=== PATIENT | male | born 1940 | race Caucasian/White ===

== ENCOUNTER 2017-08-20 09:00 | Outpatient (CLI) | payer OTHER ==
[~2017-08-20 09:00] MED LIST: ADVAIR 2501 DISK W/1 IH; PREDNISONE10 MG PO; TUSSI-PRES LIQ118 ML PO; ZITHROMAX500 MG PO
== END 2017-08-20 13:42 | disposition home or self-care (01) ==
LOC: TOM 09:00
DX: C18.2 Malignant neoplasm of ascending colon (principal)

== ENCOUNTER 2017-09-07 07:20 | Outpatient (CLI) | payer OTHER | END 2017-09-07 15:35 | disposition home or self-care (01) | LOC: TOM 07:20 | DX: D02.20 Carcinoma in situ of unspecified bronchus and lung (principal); D02.21 Carcinoma in situ of right bronchus and lung ==

== ENCOUNTER 2017-09-27 07:50 | Outpatient (CLI) | payer OTHER | END 2017-09-27 08:00 | disposition home or self-care (01) | LOC: LAB 07:50 | DX: C25.3 Malignant neoplasm of pancreatic duct (principal); E11.65 Type 2 diabetes mellitus with hyperglycemia ==

== ENCOUNTER 2017-11-22 10:07 | Emergency (ER) | payer OTHER ==
[~2017-11-22] VITALS: Ht 172.7 cm; Wt 85.3 kg
[2017-11-22] MEDS ORDERED: PRINIVIL5 MG PO (10:30)
[2017-11-22] MEDS ORDERED: KETO10TA2 PO (14:21)
[2017-11-22] MEDS ORDERED: DIAZEPAM10 MG PO (14:21)
== END 2017-11-22 14:52 | disposition home or self-care (01) ==
LOC: ER 10:07
DX: M54.5 Low back pain (principal)

== ENCOUNTER 2018-05-12 06:43 | Emergency (ER) | payer OTHER ==
[~2018-05-12] VITALS: Ht 172.7 cm; Wt 81.6 kg
[~2018-05-12 06:43] MED LIST changes: +DIAZEPAM10 MG PO; +KETO10TA2 PO; +PRINIVIL5 MG PO
== END 2018-05-12 09:03 | disposition designated cancer center or children's hospital (05) ==
LOC: ER 06:43 → CPU-OBS 06:45 → ER 09:03
DX: I21.29 ST elevation (STEMI) myocardial infarction involving other sites (principal)

== ENCOUNTER 2018-08-14 07:41 | Outpatient (CLI) | payer OTHER | END 2018-08-14 07:48 | disposition home or self-care (01) | LOC: RX STUDY 07:41 | DX: R10.13 Epigastric pain (principal); K59.09 Other constipation ==

== ENCOUNTER 2020-07-23 08:12 | Outpatient (CLI) | payer OTHER | END 2020-07-23 08:18 | disposition home or self-care (01) | LOC: RAD 08:12 | PROVIDERS: ATTEND Internal Medicine Cardiovascular Disease | DX: I70.0 Atherosclerosis of aorta (principal); I50.22 Chronic systolic (congestive) heart failure; I25.5 Ischemic cardiomyopathy ==

== ENCOUNTER 2020-07-28 07:44 | Outpatient (CLI) | payer OTHER | END 2020-07-28 07:52 | disposition home or self-care (01) | LOC: LAB 07:44 | PROVIDERS: ATTEND Internal Medicine Cardiovascular Disease | DX: I50.22 Chronic systolic (congestive) heart failure (principal) ==

== ENCOUNTER → 2020-09-02 | Outpatient (CLI) | payer OTHER | END | disposition home or self-care (01) | LOC: SONOGRAMA 07:15 | PROVIDERS: ATTEND Internal Medicine Gastroenterology | DX: R10.13 Epigastric pain (principal) ==

== ENCOUNTER 2021-02-16 08:58 | Outpatient (CLI) | payer OTHER | END 2021-02-16 09:02 | disposition home or self-care (01) | LOC: NUCLEAR 08:58 | PROVIDERS: ATTEND Internal Medicine Cardiovascular Disease | DX: I50.1 Left ventricular failure, unspecified (principal) | CPT/HCPCS: 78472; 78496; A9560 ==

== ENCOUNTER 2022-03-08 12:32 | Outpatient (CLI) | payer OTHER | END 2022-03-08 12:35 | disposition home or self-care (01) | LOC: NUCLEAR 12:32 | PROVIDERS: ATTEND Psychiatry & Neurology Clinical Neurophysiology | DX: G30.1 Alzheimer's disease with late onset (principal); G31.2 Degeneration of nervous system due to alcohol | CPT/HCPCS: 78803; A9557 ==

== ENCOUNTER 2022-06-06 07:40 | Outpatient (CLI) | payer OTHER | END 2022-06-06 07:46 | disposition home or self-care (01) | LOC: SONOGRAMA 07:40 | PROVIDERS: ATTEND Orthopaedic Surgery | DX: M25.512 Pain in left shoulder (principal) ==

== ENCOUNTER 2022-07-13 11:37 | Outpatient (CLI) | payer OTHER | END 2022-07-13 11:45 | disposition home or self-care (01) | LOC: RAD 11:37 | PROVIDERS: ATTEND Orthopaedic Surgery | DX: R07.9 Chest pain, unspecified (principal) ==

== ENCOUNTER 2023-01-29 07:22 | Outpatient (CLI) | payer OTHER | END 2023-01-29 07:30 | disposition home or self-care (01) | LOC: RAD 07:22 | PROVIDERS: ATTEND General Practice | DX: M54.9 Dorsalgia, unspecified (principal) ==

== ENCOUNTER 2023-08-02 07:15 | Outpatient (CLI) | payer OTHER | END 2023-08-02 07:23 | disposition home or self-care (01) | LOC: SONOGRAMA 07:15 | PROVIDERS: ATTEND General Practice | DX: R10.9 Unspecified abdominal pain (principal) ==

== ENCOUNTER 2023-09-10 07:20 | Outpatient (CLI) | payer OTHER | END 2023-09-10 07:21 | disposition home or self-care (01) | LOC: NUCLEAR 07:20 | PROVIDERS: ATTEND Internal Medicine Cardiovascular Disease | DX: I20.9 Angina pectoris, unspecified (principal) | CPT/HCPCS: 78452; 93017; A9500; J0153 ==